=== PATIENT | female | born 1995 | race American Indian/Alaskan Native ===

== ENCOUNTER 2017-01-03 08:42 | Outpatient (CLI) | payer BC ==
--- NOTE | 2017-01-03 13:30 | Ultrasound Report ---
Sonogram right upper quadrant: History: Right upper quadrant pain. Findings: Normal aorta and inferior vena cava. Normal liver. Gallbladder wall thickness 2.2 mm. No calculi in the gallbladder. No pericholecystic fluid. Common bile duct diameter 2.8 mm. He Right kidney 9.1 x 3.8 x 5.5 cm. Cortical thickness 1.5 cm. No mass. No hydronephrosis. Normal pancreas. Impression: Essentially negative sonogram.
== END 2017-01-03 08:43 | disposition home or self-care (01) ==
LOC: US 08:42
PROVIDERS: ATTEND Family Medicine
DX: R10.11 Right upper quadrant pain (principal)
CPT/HCPCS: 76705